=== PATIENT | male | born 1980 | race Caucasian/White ===

== ENCOUNTER 2018-07-29 06:27 | Emergency (ER) | payer BC ==
[2018-07-29 06:33] VITALS: BP 181/115; PULSE 75; RESP 20; TEMP 98.4
--- NOTE | 2018-07-29 06:41 | ED ---
GI Bleed HPI - General Chief complaint: GI Bleed Stated complaint: hemorrhoid Time Seen by Provider: 07/29/18 06:40 Source: patient, family Mode of arrival: ambulatory Limitations: no limitations - History of Present Illness Initial comments: is a 37-year-old male with a history of hemorrhoids who presents to the ER today for evaluation of severely painful hemorrhoid. Patient reports the pain started on Friday and is become unbearable. Patient never required any surgical intervention for his hemorrhoids in the past. He reports he's been applying external hemorrhoid medication with no improvement in his discomfort since Friday. - Related Data Home Medications Medication Instructions Recorded Confirmed No Known Home Medications 07/29/18 07/29/18 Allergies Allergy/AdvReac Type Severity Reaction Status Date / Time No Known Allergies Allergy Verified 07/29/18 06:32 Review of Systems ROS Statement: Those systems with pertinent positive or pertinent negative responses have been documented in the HPI. ROS Other: All systems not noted in ROS Statement are negative. Past Medical History Additional Past Medical History / Comment(s): hemmorhoids History of Any Multi-Drug Resistant Organisms: None Reported Past Surgical History: Appendectomy, Orthopedic Surgery Past Psychological History: No Psychological Hx Reported Smoking Status: Current every day smoker Past Alcohol Use History: Occasional Past Drug Use History: None Reported General Exam - General Exam Comments Initial Comments: Physical Exam GENERAL: Patient is well-developed and well-nourished. Patient appears very uncomfortable, is in moderate distress, cannot find a comfortable position to sit and HENT: Normocephalic, Atraumatic. EYES: PERRL, EOMI PULMONARY: Unlabored respirations. CARDIOVASCULAR: RRR, warm and well perfused extremities ABDOMEN: Soft and nontender with normal bowel sounds. SKIN: Skin is clear with no lesions or rashes and otherwise unremarkable. : Exam reveals a large thrombosed hemorrhoid the left lateral side of the anus NEUROLOGIC: Patient is alert and oriented x3. Moving all extremities spontaneously MUSCULOSKELETAL: Normal extremities with adequate strength and full range of motion. No lower extremity swelling or edema. No calf tenderness. PSYCHIATRIC: Normal psychiatric evaluation. Limitations: no limitations Limitations: no limitations Course Vital Signs 07/29/18 06:28 Temperature 98.4 F Pulse Rate 75 Respiratory 20 Rate Blood Pressure 181/115 O2 Sat by Pulse 100 Oximetry Procedures - Incision & Drainage Consent Obtained: verbal consent Time Out Performed?: Yes Site: other (Hemorrhoid) Anesthetic Used: lidocaine 1% Amount (mLs): 2 I&D Cleaning Method: Chloroprep Sterile Field Used?: No Scalpel Used: #11 Needle Aspiration Performed?: No Irrigation Performed?: No I&D Drainage Obtained: Blood (Large clot) Culture Obtained?: No Patient Tolerated Procedure: well Medical Decision Making - Medical Decision Making Patient was seen and evaluated history was obtained from the patient . Patient with a large thrombosed hemorrhoids on exam. She consented to having the hemorrhoid excised, area was cleansed with ChloraPrep, anesthetized with lidocaine a approximately one and half centimeter elliptical incision was made, large amount of clot was expressed. Gauze was applied to the area for some oozing of venous blood. Hemorrhoid care was discussed with the patient and . All questions pertaining to care were answered best my ability, return parameters were discussed and patient was discharged home in stable condition. Disposition Clinical Impression: Thrombosed external hemorrhoid Disposition: HOME SELF-CARE Condition: Stable Instructions: Thrombosed Hemorrhoid (ED) Is patient prescribed a controlled substance at d/c from ED?: No Referrals: None,Stated [Primary Care Provider] - 1-2 days
[2018-07-29] MEDS ORDERED: LIDOCAINE 1% INJ 10MG/ML (20 ML MDV) SQ ONE (06:52)
== END 2018-07-29 07:17 | disposition home or self-care (01) ==
LOC: EC 06:27
DX: K64.5 Perianal venous thrombosis (principal); F17.200 Nicotine dependence, unspecified, uncomplicated
CPT/HCPCS: 99282; 46083; J2001